=== PATIENT | male | born 1980 | race Caucasian/White ===

== ENCOUNTER 2016-08-10 16:15 | Emergency (ER) | payer OTHER ==
[2016-08-10 16:34] VITALS: BP 142/92; PULSE 82; TEMP 99.2; BMI 26.3
--- NOTE | 2016-08-10 16:37 | PDOC ---
History of Present Illness - General History Source: Patient, Family, Old Records Exam Limitations: No Limitations - History of Present Illness Initial Comments: 08/10/16 16:55 The patient is a 36 year old male with no significant past medical history, who presents to the emergency department today for further evaluation of diarrhea for two weeks. The patient reports that initially his stool was soft then, on saturday he began to have diarrhea. The patient reports that he had 2 episodes of liquid diarrhea, one yesterday and one today. The patient reports associated gassiness. The patient notes a recent change in dietary habits (substituted vegetable juice for breakfast in place of coffee, white bread, and scrambled eggs). The patient denies fever, chills, and sweats. The patient denies abdominal pain, rectal bleeding, nausea, vomiting, and diarrhea. The patient denies chest pain, cough, and shortness of breath. PCP: Dr. John Keane [phone] PAST MEDICAL HISTORY: No significant history reported PAST SURGICAL HISTORY: No significant history reported FAMILY HISTORY: No pertinent history reported SOCIAL HISTORY: No D/A/T MEDICATIONS: Reviewed ALLERGIES: As per nursing notes <Gilles Madrigal - Last Filed: 08/10/16 17:53> <Aly Smith - Last Filed: 08/10/16 17:58> - General Chief Complaint: Diarrhea Stated Complaint: DIARRHEA Time Seen by Provider: 08/10/16 16:26 Past History <Gilles Madrigal - Last Filed: 08/10/16 17:53> - Past Medical History Asthma: Yes (CHILDHOOD - RESOLVED) - Psycho/Social/Smoking Cessation Hx Anxiety: No Suicidal Ideation: No Smoking History: Never smoked Hx Alcohol Use: No Drug/Substance Use Hx: No Substance Use Type: None <Aly Smith - Last Filed: 08/10/16 17:58> - Past Medical History Allergies/Adverse Reactions: Allergies Allergy/AdvReac Type Severity Reaction Status Date / Time lactose AdvReac Mild Verified 08/10/16 16:26 Home Medications: Ambulatory Orders Cyanocobalamin/Folic Acid [B-12 1,000 Mcg Sub Tablet] 1 each SL DAILY 08/10/16 Famotidine [Pepcid] 20 mg PO BID PRN #60 tablet 08/10/16 Review of Systems - Review of Systems Able to Perform ROS?: Yes Comments:: 08/10/16 17:36 CONSTITUTIONAL: Absent: Fever, Chills, Diaphoresis, Generalized Weakness, Malaise, Loss of Appetite HEENT: Absent: Rhinorrhea, Nasal Congestion, Throat Pain, Throat Swelling, Difficulty Swallowing, Mouth Swelling, Ear Pain, Eye Pain, Visual Changes CARDIOVASCULAR: Absent: Chest Pain, Syncope, Palpitations, Irregular Heart Rate, Lightheadedness , Peripheral Edema GASTROINTESTINAL: Present: Diarrhea, Gassiness Absent: Constipation, Nausea MUSCULOSKELETAL: Absent: Myalgia, Arthralgia, Joint Swelling, Back pain, Neck Pain SKIN: Absent: Rash, Itching, Pallor <Gilles Madrigal - Last Filed: 08/10/16 17:53> *Physical Exam - Vital Signs Last Vital Signs Temp Pulse Resp BP Pulse Ox 99.2 F 82 15 142/92 99 08/10/16 16:24 08/10/16 16:24 08/10/16 16:24 08/10/16 16:24 08/10/16 16:24 - Physical Exam Comments: 08/10/16 17:36 GENERAL: The patient is awake, alert, and fully oriented, in no acute distress. HEAD: Normal with no signs of trauma. EYES: Pupils equal, round and reactive to light, extraocular movements intact, sclera anicteric, conjunctiva clear. ENT: Ears normal, nares patent, oropharynx clear without exudates. Moist mucous membranes. NECK: Normal range of motion, supple without lymphadenopathy, JVD, or masses. LUNGS: Breath sounds equal, clear to auscultation bilaterally. No wheezes, and no crackles. HEART: Regular rate and rhythm, normal S1 and S2 without murmur, rub or gallop. ABDOMEN: Soft, nontender, normoactive bowel sounds. No guarding, no rebound. No masses. EXTREMITIES: Normal range of motion, no edema. No clubbing or cyanosis. No cords , erythema, or tenderness. NEUROLOGICAL: Cranial nerves II through XII grossly intact. Normal speech, normal gait. PSYCH: Normal mood, normal affect. SKIN: Warm, Dry, normal turgor, no rashes or lesions noted. <Gilles Madrigal - Last Filed: 08/10/16 17:53> - Vital Signs Last Vital Signs Temp Pulse Resp BP Pulse Ox 99.2 F 82 15 142/92 99 08/10/16 16:24 08/10/16 16:24 08/10/16 16:24 08/10/16 16:24 08/10/16 16:24 <Aly Smith - Last Filed: 08/10/16 17:58> Medical Decision Making - Medical Decision Making 08/10/16 17:56 Patient is a 36 rolled man who comes in complaining of one episode a day of liquid diarrhea without blood, mucus, and no abdominal pain. The symptoms have been present for 2 days. There is no significant travel history. There are no sick contacts. His abdominal examination is completely benign. 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 Given the normal examination, and benign sounding history, the once daily episodes of loose stool are likely due to dietary changes. There is no evidence of fever, no abdominal pain, and nothing to suggest a more serious etiology. Patient was advised regarding dietary changes, and given Pepcid for when necessary use for abdominal acid symptoms. He was advised to follow-up with his primary physician if the symptoms do not resolve. <Aly Smith - Last Filed: 08/10/16 17:58> *DC/Admit/Observation/Transfer - Attestations Scribe Attestion: 08/10/16 16:57 Documentation prepared by Gilles Madrigal, acting as medical laboratory technical officer for Aly Smith MD. <Gilles Madrigal - Last Filed: 08/10/16 17:53> - Discharge Dispostion Admit: No <Aly Smith - Last Filed: 08/10/16 17:58> Diagnosis at time of Disposition: Diarrhea Qualifiers: Diarrhea type: unspecified type Qualified Code(s): R19.7 - Diarrhea, unspecified - Discharge Dispostion Disposition: HOME Condition at time of disposition: Good - Prescriptions Prescriptions: Famotidine [Pepcid] 20 mg PO BID PRN #60 tablet PRN Reason: excess stomach acid - Referrals Referrals: John Keane MD [Primary Care Provider] - 3 days - Patient Instructions Printed Discharge Instructions: Diarrhea Additional Instructions: Today you were evaluated for mild diarrhea. The examination of your abdomen was completely normal. It is no sign of any infection or other serious cause. Eat bananas and adjust your diet to evaluate if the diarrhea improves. Take Pepcid twice a day as needed for excess stomach acid. Follow-up with your primary care physician next week. Return to the emergency department for any severe or progressive symptoms.
== END 2016-08-10 17:32 | disposition home or self-care (01) ==
LOC: SUPCPDRO 16:15 → FER 16:15
DX: R19.7 Diarrhea, unspecified (principal)
CPT/HCPCS: 99282-25

== ENCOUNTER 2023-09-16 11:36 | Emergency (ER) | payer OTHER ==
[2023-09-16] MEDS ORDERED: LIDOCAINE 5% TOPICAL PATCH ONE (12:39)
[2023-09-16] MEDS ORDERED: KETOROLAC TROMETHAMINE 30 MG/1 ML VIAL ONE (12:39)
[2023-09-16] MEDS ORDERED: METHOCARBAMOL 500 MG TABLET ONE (12:39)
[2023-09-16 13:04] VITALS: BP 156/97; PULSE 82; RESP 18; TEMP 98.6; BMI 29.8
[2023-09-16] MEDS: LIDOCAINE 5% TOPICAL PATCH TP ONE (13:09)
[2023-09-16] MEDS: KETOROLAC TROMETHAMINE 30 MG/1 ML VIAL IM ONE (13:09)
[2023-09-16] MEDS: METHOCARBAMOL 500 MG TABLET PO ONE (13:09)
[2023-09-16 13:25] LABS: HEMATOCRIT 43.2 % (35.4-49); MCH 39.9 pg (25.7-33.7); MCHC 32.5 g/dl (32.0-35.9); MEAN CELL VOLUME 123.1 fl (80-96); MEAN PLT VOLUME 8.3 fl (7.5-11.1); RBC 3.51 10^6/uL (4.00-5.60); RDW 14.1 % (11.9-15.9); WHITE BLOOD COUNT 6.2 10^3/uL (4.0-10.8)
[2023-09-16 13:37] LABS: ALK PHOS 54 U/L (45-117); ANION GAP 8 mmol/L (4-13); BILIRUBIN,TOTAL 0.6 mg/dl (0.2-1); CALCIUM 9.7 mg/dl (8.5-10.1); CHLORIDE 101 mmol/L (98-107); CO2 29 mmol/L (21-32); CREATININE 0.8 mg/dl (0.6-1.3); GLUCOSE,RANDOM 87 mg/dl (74-106); MAGNESIUM 1.9 mg/dL (1.8-2.4); POTASSIUM 4.5 mmol/L (3.5-5.1); SGOT/AST 26 U/L (15-37); SGPT/ALT 26 U/L (7-52); SODIUM 138 mmol/L (136-145); TOT PROT 8.6 g/dl (6.4-8.2)
[2023-09-16 15:48] LABS: MACROCYTOSIS 1+
[2023-09-16 15:49] LABS: PLATELET ESTIMATE ADEQUATE
[2023-09-16] MEDS ORDERED: LIDOCAINE PATCH REMOVAL MC ONE (22:00)
== END 2023-09-16 16:22 | disposition home or self-care (01) ==
LOC: FER 11:36
PROC: 3E0233Z Introduction of Anti-inflammatory into Muscle, Percutaneous Approach (ICD-10-PCS; principal; 2023-09-16)
DX: M54.50 Low back pain, unspecified (principal); G89.29 Other chronic pain; M71.22 Synovial cyst of popliteal space [Baker], left knee; M79.604 Pain in right leg; M79.605 Pain in left leg
CPT/HCPCS: 36415; 72100-TC-FY; 72170-TC-FY; 80053; 82550; 82553; 82607; 82746; 83735; 85027; 93970-TC; 99285-25